=== PATIENT | female | born 1995 | race African-American/Black ===

== ENCOUNTER 2018-03-29 06:12 | Inpatient (IN) ==
[2018-03-29] MEDS ORDERED: MEPERIDINE 50 MG/1 ML VIAL IM PRN (07:09)
[2018-03-29] MEDS ORDERED: ONDANSETRON 4 MG/2 ML VIAL IV PRN (07:09)
[2018-03-29] MEDS ORDERED: LACTATED RINGERS 1,000 ML IV SCH ×2 (07:30→12:04)
[2018-03-29] MEDS ORDERED: OXYTOCIN/LR 20 UNIT/1,000 ML BAG IV SCH (07:30)
[2018-03-29 07:46] LABS: Basophils # 0.1 10*3/uL (0.0-0.2); Basophils % 0.3 % (0.0-0.8); Eosinophils # 0.3 10*3/uL (0.0-0.87); Hematocrit 31.4 VOL% (35.7-47.0); Hemoglobin 9.9 GM/DL (12.0-16.0); Immature Granulocytes % 1.9 %; Immature Granulocytes Absolute 0.33 #; Lymphocytes # 3.6 10*3/uL (1.4-4.0); Lymphocytes % 20.6 % (21.3-54.2); Mean Corpuscular HGB Conc 31.5 GM/DL (32-36); Mean Corpuscular Hemoglobin 24 PG (27-34); Mean Corpuscular Volume 75.8 FL (87-102); Mean Platelet Volume 10.3 FL (9.6-12.0); Monocytes # 1.4 10*3/uL (0.11-0.8); Monocytes % 7.8 % (1.7-12.7); NRBC # 0.02 10*3/uL; Neutrophils # 11.8 10*3/uL (1.4-7.4); Neutrophils % 67.4 % (38.7-73.9); Platelet Count 270 T/CUMM (130-400); Red Blood Count 4.14 MC/CUMM (3.8-5.5); Red Cell Distribution Width 16.2 % (9.3-17.3); White Blood Count 17.4 T/CUMM (4-12)
[2018-03-29] MEDS ORDERED: FAMOTIDINE 20 MG/2 ML VIAL IV ONE (08:12)
[2018-03-29] MEDS ORDERED: ePHEDrine 50 MG/ML AMP IV PRN (08:12)
[2018-03-29] MEDS ORDERED: CITRIC ACID/SODIUM CITRATE 30 ML UDCUP PO ONE (08:12)
[2018-03-29] MEDS ORDERED: LACTATED RINGERS 1,000 ML IV ONE (08:12)
[2018-03-29] MEDS ORDERED: LACTATED RINGERS 250 ML IV PRN (08:13)
[2018-03-29] MEDS ORDERED: NALOXONE 0.4 MG/ML VIAL IV PRN (08:13)
[2018-03-29] MEDS ORDERED: diphenhydrAMINE 50 MG/1 ML VIAL IV PRN ×2 (08:13)
[2018-03-29] MEDS ORDERED: hydrOXYzine HCL 25 MG/1 ML VIAL IM PRN (08:13)
[2018-03-29] MEDS ORDERED: PROMETHAZINE 25 MG/1 ML VIAL IM ONE (08:13)
[2018-03-29 08:20] LABS: Alanine Aminotransferase 13 U/L (13-56); Albumin 2.3 G/DL (3.4-5.0); Alkaline Phosphatase 165 U/L (45-117); Aspartate Amino Transferase 16 U/L (0-37); Bilirubin,Total < 0.39 MG/DL (0.2-1.0); Blood Urea Nitrogen 3 MG/DL (7-18); Calcium 8.7 MG/DL (8.5-10.1); Glucose 80 MG/DL (74-106); Sodium 138 MMOL/L (136-145); Total Protein 6.8 G/DL (6.4-8.3)
[2018-03-29 08:21] LABS: Osmolality,Calculated 270.7 MOS/KG (273-304); Potassium 3.6 MMOL/L (3.5-5.1)
[2018-03-29] MEDS ORDERED: fentaNYL 2 MCG/ROPIV 0.2% EPID 100 ML EPIDURAL SCH (08:30)
[2018-03-29 11:24] LABS: Apearance,Urine CLEAR (Clear); Bilirubin,Urine Negative (Negative); Blood, Urine Negative (Negative); Glucose,Urine (UA) Negative (Negative); Ketones,Urine 20 mg/dL (Negative); Mucus,Urine Few /LPF (Occasional); Nitrite,Urine Negative (Negative); Protein,Urine Negative; RBC,Urine 1 /HPF (0-4); Squamous Epithelial Cell,Urine Occasional /HPF (0-10); Urine Color Yellow (Yellow); Urine Specific Gravity 1.012 (1.001-1.035); Urine Urobilinogen < 2.0 EU/DL (0.2-1.0); WBC,Urine 1 /HPF (0-6)
[2018-03-29] MEDS ORDERED: METHYLERGONOVINE 0.2 MG/1 ML AMP ONE (14:03)
[2018-03-29] MEDS ORDERED: miSOPROStol 200 MCG TABLET ONE (14:03)
[2018-03-29] MEDS ORDERED: LIDOCAINE 1% 50 ML VIAL ONE (14:03)
[2018-03-29 15:34] LABS: Cord Arterial Blood HCO3 22.5 MMOL/L
[2018-03-29 15:39] LABS: Cord Venous Blood HCO3 22.4 MMOL/L; Cord Venous Blood PCO2 36.1 MMHG; Cord Venous Blood PO2 39.2
[2018-03-29] MEDS ORDERED: OXYTOCIN/LR 20 UNIT/1,000 ML BAG IV ONE (17:05)
[2018-03-29] MEDS ORDERED: RHO(D) IMMUNE GLOBULIN 300 MCG SYRINGE IM ONE (17:19)
[2018-03-29] MEDS ORDERED: WITCH HAZEL PADS 100/JAR TOP PRN (17:19)
[2018-03-29] MEDS ORDERED: ACETAMINOPHEN 325 MG TABLET PO PRN (17:19)
[2018-03-29] MEDS ORDERED: MEASLES/MUMPS/RUBELLA VACCINE 0.5 ML VIAL SUBCUT ONE (17:19)
[2018-03-29] MEDS ORDERED: LANOLIN 50% CREAM 0.3 OZ TUBE TOP PRN (17:19)
[2018-03-29] MEDS ORDERED: DIPH/TET/ACEL PERT BOOSTER VACCINE 0.5 ML VIAL IM ONE (17:19)
[2018-03-29] MEDS ORDERED: BENZOCAINE 20%/MENTHOL 0.5% SPRAY 56 GM CAN TOP PRN (17:19)
[2018-03-29] MEDS ORDERED: HYDROCORTISONE 2.5% RECTAL CREAM 30 GM TUBE TOP PRN (17:19)
[2018-03-29] MEDS ORDERED: ACETAMINOPHEN/CODEINE 300-30 MG TABLET PO PRN (17:19)
[2018-03-29] MEDS ORDERED: BISACODYL 10 MG SUPP RECTAL PRN (17:19)
[2018-03-29] MEDS ORDERED: oxyCODONE/ACETAMINOPHEN 5-325 MG TABLET PO PRN (17:19)
[2018-03-29] MEDS: IBUPROFEN 800 MG TABLET PO PRN ×2 (17:30→23:47)
[2018-03-29] MEDS: DOCUSATE SODIUM 100 MG CAPSULE PO SCH (20:22)
[2018-03-30] MEDS: DOCUSATE SODIUM 100 MG CAPSULE PO SCH ×2 (09:59→22:15)
[2018-03-30] MEDS: IBUPROFEN 800 MG TABLET PO PRN (10:01)
[2018-03-30 18:09] LABS: Basophils # 0.1 10*3/uL (0.0-0.2); Basophils % 0.4 % (0.0-0.8); Eosinophils # 0.7 10*3/uL (0.0-0.87); Eosinophils % 3.5 % (0.00-10.9); Hematocrit 30.3 VOL% (35.7-47.0); Hemoglobin 9.5 GM/DL (12.0-16.0); Immature Granulocytes % 1.5 %; Immature Granulocytes Absolute 0.29 #; Lymphocytes # 4.6 10*3/uL (1.4-4.0); Lymphocytes % 24.1 % (21.3-54.2); Mean Corpuscular HGB Conc 31.4 GM/DL (32-36); Mean Corpuscular Hemoglobin 24 PG (27-34); Mean Corpuscular Volume 75.6 FL (87-102); Monocytes # 1.3 10*3/uL (0.11-0.8); Monocytes % 6.8 % (1.7-12.7); Neutrophils # 12.2 10*3/uL (1.4-7.4); Neutrophils % 63.7 % (38.7-73.9); Platelet Count 285 T/CUMM (130-400); Red Blood Count 4.01 MC/CUMM (3.8-5.5); White Blood Count 19.1 T/CUMM (4-12)
[2018-03-31] MEDS: oxyCODONE/ACETAMINOPHEN 5-325 MG TABLET PO PRN ×2 (00:25→06:39)
[2018-03-31] MEDS: DOCUSATE SODIUM 100 MG CAPSULE PO SCH (09:46)
[2018-03-31 12:13] VITALS: BP 131/80
== END 2018-03-31 13:00 | disposition home or self-care (01) | DRG 560 ==
LOC: N.LDOUT 06:12 → N.LD 06:14 → N.OB 19:52
PROVIDERS: ADMIT Obstetrics & Gynecology; ATTEND Obstetrics & Gynecology